=== PATIENT | male | born 1995 | race Caucasian/White ===

== ENCOUNTER 2018-11-25 10:47 | Outpatient (CLI) | payer BC ==
--- NOTE | 2018-11-25 13:14 | CT ---
CT OF HEAD NONCONTRAST: INDICATION: Possible seizure. COMPARISON: No prior imaging comparison. FINDINGS: The ventricular system is normal in size. There is no evidence of intracranial hemorrhage, mass effe ct, or midline shift. Mild mucosal prominence is noted within the visualized paranasal sinuses. IMPRESSION: No acute intracranial hemorrhage or mass effect. For further assessment of prior seizure activity, consider pre- and post-contrast brain MRI. POS: [facility]
== END 2018-11-25 10:48 | disposition home or self-care (01) ==
LOC: SCSCT 10:47
PROVIDERS: ATTEND Family Medicine
DX: R56.9 Unspecified convulsions (principal)
CPT/HCPCS: 70450